=== PATIENT | female | born 1935 | race Caucasian/White ===

== ENCOUNTER 2021-10-10 14:30 | Emergency (ER) | payer MEDICARE ==
[2021-10-10] MEDS ORDERED: HYDROCODON-ACE1 EAC4 PO (16:44)
== END 2021-10-10 17:30 | disposition home or self-care (01) ==
LOC: ER1 14:30
DX: S52.592A Other fractures of lower end of left radius, initial encounter for closed fracture (principal); S50.12XA Contusion of left forearm, initial encounter; S60.222A Contusion of left hand, initial encounter; I10 Essential (primary) hypertension; W01.10XA Fall on same level from slipping, tripping and stumbling with subsequent striking against unspecified object, initial encounter
CPT/HCPCS: 29125; 73090; 73110; 73130; 93005; 99283